=== PATIENT | female | born 1950 | race Caucasian/White ===

== ENCOUNTER 2023-07-06 21:24 | Observation (INO) | payer MEDICAID ==
--- NOTE | 2023-07-06 22:26 | RAD REPORT ---
EXAM DESCRIPTION: [place] Single View07/06/2023 10:08 pm CLINICAL HISTORY: Chest pain COMPARISON: none FINDINGS: The lungs appear clear of acute infiltrate. The heart is normal size IMPRESSION: No acute abnormalities displayed
[2023-07-06] MEDS ORDERED: NITROGLYCERIN 0.4 MG/TAB SL ONE (22:27)
[2023-07-06 23:04] LABS: Absolute Basophils 0.2 K/uL (0-0.5); Absolute Eosinophils 0.4 K/uL (0-0.5); Absolute Lymphocytes (CBC) 2.4 K/uL (0.7-4.9); Absolute Monocytes 0.7 K/uL (0.1-1.3); Absolute Neutrophil 2.5 K/uL (1.8-8.0); Basophils % 2.6 % (0-1.3); Eosinophils % 5.8 % (0-4.4); Hematocrit 41.7 % (36.0-45.0); Hemoglobin 14.1 g/dL (12.0-15.0); Lymphocytes % 39.4 % (15.3-44.8); MCH 29.4 pg (27.0-35.0); MCHC 33.8 g/dL (32.0-36.0); MPV 9.1 fL (7.6-11.3); Monocytes % 11.2 % (3.3-12.3); Nucleated Red Blood Cells % 0.2 % (0-0); Platelets 232 thou/uL (152-406); Red Cell Distribution Width 13.6 % (12.1-15.2)
[2023-07-06 23:12] LABS: PT Prothrombin Time 11.2 SECONDS (9.5-12.5); Protime INR 1.02
[2023-07-06 23:35] LABS: ALT/SGPT 28 U/L (13-56); Albumin/Globulin Ratio 1.1 (1.1-1.8); Alkaline Phosphatase 62 U/L (45-117); Anion Gap 6.9 mEq/L (5.0-15.0); BUN Blood Urea Nitrogen 24 mg/dL (7-18); Bicarbonate 28 mEq/L (21-32); Bilirubin Direct 0.1 mg/dL (0-0.2); Bilirubin Indirect, Calculated 0.6 mg/dL (0.2-0.8); Bilirubin Total 0.7 mg/dL (0.2-1.0); Globulin 3.5 g/dL (2.3-3.5); Glomerular Filtration Rate 48 ml/min (=/>90); Glucose Level 97 mg/dL (74-106); NT PRO-BNP 22 pg/mL (<125); Protein, Total 7.5 g/dL (6.4-8.2); Sodium Level 138 mEq/L (136-145)
[2023-07-07 00:07] LABS: AST/SGOT 12 U/L (15-37); Potassium 3.9 mEq/L (3.5-5.1); Troponin High Sensitivity < 3.0 pg/mL (<58.9)
[2023-07-07] MEDS ORDERED: NA CHLORIDE 0.9% 500 ML ONE (00:15)
[2023-07-07] MEDS ORDERED: KETOROLAC 30 MG/ML INJ ONE (01:27)
[2023-07-07] MEDS ORDERED: ASPIRIN 81 MG CHEWABLE TABLET ONE (01:27)
--- NOTE | 2023-07-07 01:30 | ER ---
Nurse's Notes [facility] Name: Ade Nagel Age: 72 yrs Sex: Female : 1950 Arrival Date: 07/06/2023 Time: 21:24 Bed 18 Private MD: Diagnosis: Chest pain, unspecified;Pain in left shoulder;Abnormal electrocardiogram [ECG] [EKG] Presentation: 07/05 21:41 Chief complaint: Patient states: i HAVE LEFT SHOULDER PAIN THAT IS RADIATIING INTO MY bm8 UPPER CHEST. IT'S SHARP AND HAS BEEN GOING FOR ABOUT TWO HOURS NOW. i TOOK 3 TYLENOL PM 2 HOURS AGO WHEN IT STARTED. Coronavirus screen: Vaccine status: Patient reports receiving the 2nd dose of the covid vaccine. Ebola Screen: Patient negative for fever greater than or equal to 101.5 degrees Fahrenheit, and additional compatible Ebola Virus Disease symptoms Patient denies exposure to infectious person. Patient denies travel to an Ebola-affected area in the 21 days before illness onset. No symptoms or risks identified at this time. Initial Sepsis Screen: Does the patient meet any 2 criteria? No. Patient's initial sepsis screen is negative. Does the patient have a suspected source of infection? No. Patient's initial sepsis screen is negative. Risk Assessment: Do you want to hurt yourself or someone else? Patient reports no desire to harm self or others. Onset of symptoms was July 06, 2023 at 19:00. 21:41 Method Of Arrival: Ambulatory bm8 21:41 Acuity: BECCA 3 bm8 Triage Assessment: 21:43 General: Appears in no apparent distress. uncomfortable, Behavior is calm, cooperative. bm8 Pain: Complains of pain in left SHOULDER Pain radiates to chest Pain currently is 8 out of 10 on a pain scale. Quality of pain is described as sharp, Pain began 2 hours ago. EENT: No deficits noted. No signs and/or symptoms were reported regarding the EENT system. Neuro: No deficits noted. Level of Consciousness is awake, alert, obeys commands, Oriented to person, place, time, situation, Appropriate for age. Cardiovascular: Reports chest pain, Capillary refill < 3 seconds Patient's skin is warm and dry. Respiratory: Airway is patent Trachea midline Respiratory effort is even, unlabored, Respiratory pattern is regular, symmetrical. Musculoskeletal: Range of motion: intact in all extremities, Reports LEFT SHOULDER PAIN THAT RADIATES INTO CHEST. Historical: - Allergies: 21:43 No Known Allergies; bm8 - Home Meds: 21:43 atorvastatin 40 mg oral tablet 1 tab daily [Active]; bm8 - PMHx: 21:43 HLD; bm8 - PSHx: 21:43 X3 C SECTION; Tonsillectomy; bm8 - Immunization history:: Adult Immunizations unknown. - Infectious Disease History:: Denies. - Social history:: Smoking status: Patient denies any tobacco usage or history of. Screenin:32 [facility] ED Fall Risk Assessment (Adult) History of falling in the last 3 months, tm6 including since admission No falls in past 3 months (0 pts) Confusion or Disorientation No (0 pts) Intoxicated or Sedated No (0 pts) Impaired Gait No (0 pts) Mobility Assist Device Used No (0 pt) Altered Elimination No (0 pt) Score/Fall Risk Level 0 - 2 = Low Risk Oriented to surroundings, Maintained a safe environment. Abuse screen: Denies threats or abuse. Denies injuries from another. Nutritional screening: No deficits noted. Tuberculosis screening: No symptoms or risk factors identified. Assessment: 22:31 General: Appears uncomfortable, Behavior is calm, cooperative. Pain: Complains of pain tm6 in chest Pain currently is 8 out of 10 on a pain scale. Quality of pain is described as sharp. Neuro: Level of Consciousness is awake, alert, obeys commands, Oriented to person, place, time, situation. Cardiovascular: Reports chest pain, Patient's skin is warm and dry. Rhythm is regular Chest pain is described as Pain is 8 out of 10 on a pain scale. quality is sharp. Respiratory: Airway is patent Respiratory effort is even, unlabored, Respiratory pattern is regular, symmetrical. GI: Abdomen is flat, non-distended, Reports nausea, vomiting. : No signs and/or symptoms were reported regarding the genitourinary system. EENT: No signs and/or symptoms were reported regarding the EENT system. Derm: No signs and/or symptoms reported regarding the dermatologic system. Musculoskeletal: No signs and/or symptoms reported regarding the musculoskeletal system. 07/06 00:28 Reassessment: Patient and/or family updated on plan of care and expected duration. Pain tm6 level reassessed. Patient is alert, oriented x 3, equal unlabored respirations, skin warm/dry/pink. Patient states symptoms have not improved. 02:24 Reassessment: Patient appears in no apparent distress at this time. tm6 03:00 Reassessment: Patient and/or family updated on plan of care and expected duration. Pain tm6 level reassessed. Patient is alert, oriented x 3, equal unlabored respirations, skin warm/dry/pink. 04:10 Reassessment: report faxed to 2nd floor. tm6 Vital Signs: 07/05 21:41 BP 165 / 72; Pulse 64; Resp 17; Temp 97.6; Pulse Ox 100% ; Weight 98.43 kg; Height 5 bm8 ft. 7 in. ; Pain 8/10; 22:31 BP 125 / 67; Pulse 65; Pulse Ox 99% on R/A; Pain 8/10; tm6 22:59 BP 112 / 59; Pulse 57; Pulse Ox 98% on R/A; Pain 7/10; tm6 23:31 BP 114 / 61; Pulse 58; Pulse Ox 96% on R/A; Pain 7/10; tm6 07/06 00:00 BP 108 / 63; Pulse 59; Pulse Ox 97% on R/A; Pain 6/10; tm6 00:27 Pain 6/10; tm6 02:24 BP 110 / 57; Pulse 62; Resp 21; Pulse Ox 98% on R/A; tm6 03:30 BP 137 / 63; Pulse 58; Resp 15; Pulse Ox 99% on R/A; Pain 0/10; tm6 04:00 BP 114 / 64; Pulse 55; Resp 14; Pulse Ox 97% on R/A; Pain 0/10; tm6 07/05 21:41 Body Mass Index 33.99 (98.43 kg, 170.18 cm) bm8 07/05 21:41 Pain Scale: Adult bm8 22:31 Pain Scale: Adult tm6 22:59 Pain Scale: Adult tm6 23:31 Pain Scale: Adult tm6 07/06 00:00 Pain Scale: Adult tm6 00:27 Pain Scale: Adult tm6 03:30 Pain Scale: Adult tm6 04:00 Pain Scale: Adult tm6 ED Course: 07/05 21:31 Patient arrived in ED. ra3 21:34 Page, Efren, PA is PHCP. cp 21:34 Yvon Padilla MD is Attending Physician. cp 21:43 Triage completed. bm8 21:43 Arm band placed on left wrist. bm8 22:10 XRAY Chest (1 view) In Process Unspecified. EDMS 22:16 Initial lab(s) drawn, by me, sent to lab. EKG done, by ED staff, reviewed by Yvon Padilla MD. Missed attempt(s): 22 gauge Bleeding controlled, band aid applied, catheter tip intact. 22:16 Inserted saline lock: 22 gauge in right wrist, using aseptic technique. Blood collected.bm8 22:26 Prasad Krause, RN is Primary Nurse. tm6 22:32 Patient has correct armband on for positive identification. Placed in gown. Bed in low tm6 position. Call light in reach. Side rails up X2. Provided Education on: use of call prather. Client placed on continuous cardiac and pulse oximetry monitoring. NIBP monitoring applied. surveillance system monitor on. Pulse ox on. NIBP on. Door closed. Noise minimized. Warm blanket given. 0506 00:35 CT Chest For PE Angio In Process Unspecified. EDMS 01:29 Kaleb Lindquist MD is Hospitalizing Provider. cp 04:13 No provider procedures requiring assistance completed. Patient admitted, IV remains in tm6 place. Administered Medications: 07/05 22:31 Drug: Nitroglycerin Sublingual 0.4 mg Sublingual once Route: Sublingual; tm6 07/06 00:47 Drug: NS 0.9% IV 500 ml IV at 125 ml/hr continuous Route: IV; Rate: 125 ml/hr; Site: tm6 right wrist; 01:38 Drug: Ketorolac IVP 15 mg IVP once Route: IVP; Site: right wrist; tm6 01:38 Drug: Aspirin PO Chewable Tablet 324 mg PO once; 81 mg tablets x 4 Route: PO; tm6 Medication: 07/05 22:32 VIS not applicable for this client. tm6 Outcome: 07/06 01:30 Decision to Hospitalize by Provider. cp 04:13 Admitted to Med/surg accompanied by tech, via wheelchair, room 210, with chart, tm6 04:13 Condition: stable 04:13 Instructed on the need for admit, 04:43 Patient left the ED. tm6 Signatures: Dispatcher [employer] Efren Haque PA PA cp Masterson, Tawney RN RN tm6 Fatuma Shaikh ra3 Jin Wooten RN RN bm8 Corrections: (The following items were deleted from the chart) 04:12 04:11 BP 114 / 64; Pulse 55bpm; Resp 14bpm; Pulse Ox 97% RA; Pain 0/10, Adult; tm6 tm6 04:12 03:00 BP 114 / 64; Pulse 55bpm; Resp 14bpm; Pulse Ox 97% RA; Pain 0/10, Adult; tm6 tm6
--- NOTE | 2023-07-07 01:30 | EDPHYS ---
Physician Documentation [facility] Name: Ade Nagel Age: 72 yrs Sex: Female : 1950 Arrival Date: 07/06/2023 Time: 21:24 Bed 18 Private MD: ED Physician Yvon Padilla HPI: 07/05 21:50 This 72 yrs old Female presents to ER via Ambulatory with complaints of Shoulder Pain. cp 21:50 The patient or guardian complains of pain, that is acute. cp 21:50 left shoulder. Context: The problem was sustained at home. Onset: The symptoms/episode cp began/occurred today. Modifying factors: The symptoms are aggravated by movement. Severity of symptoms: in the emergency department the symptoms are unchanged, despite home interventions. Treatment prior to arrival includes: no previous treatment. 21:50 Associated signs and symptoms: Pertinent positives: chest pain, Pertinent negatives: cp abdominal pain. Historical: - Allergies: 21:43 No Known Allergies; bm8 - Home Meds: 21:43 atorvastatin 40 mg oral tablet 1 tab daily [Active]; bm8 - PMHx: 21:43 HLD; bm8 - PSHx: 21:43 X3 C SECTION; Tonsillectomy; bm8 - Immunization history:: Adult Immunizations unknown. - Infectious Disease History:: Denies. - Social history:: Smoking status: Patient denies any tobacco usage or history of. ROS: 21:55 MS/extremity: Positive for pain, of the left shoulder, cp 21:55 Cardiovascular: Positive for chest pain, of the left side of chest, cp 21:55 Constitutional: Negative for body aches, chills, fever, poor PO intake, cp 21:55 Eyes: Negative for injury, pain, redness, and discharge, ENT: Negative for injury, cp pain, and discharge, 21:55 Eyes: Negative for discharge, pain, redness, 21:55 ENT: Negative for drainage from ear(s), ear pain, sore throat, difficulty swallowing, difficulty handling secretions, 21:55 Neck: Negative for pain with movement, pain at rest, stiffness, 21:55 Respiratory: Negative for cough, shortness of breath, wheezing, 21:55 Abdomen/GI: Negative for abdominal pain, vomiting, diarrhea, constipation, 21:55 Neuro: Negative for altered mental status, dizziness, headache, numbness, weakness, 21:55 All other systems are negative, Exam: 21:43 ECG was reviewed by the Attending Physician. cp 22:00 Constitutional: The patient appears in no acute distress, alert, awake, cp non-diaphoretic, non-toxic, well developed, well nourished, uncomfortable, 22:00 Head/Face: Normocephalic, atraumatic. cp 22:00 Eyes: Periorbital structures: appear normal, Conjunctiva: normal, no exudate, no injection, Sclera: no appreciated abnormality, Lids and lashes: appear normal, bilaterally, 22:00 ENT: External ear(s): are unremarkable, Nose: is normal, Mouth: Lips: normal, Oral mucosa: pink and intact, moist, Posterior pharynx: is normal, airway is patent, no erythema, no exudate, 22:00 Neck: ROM/movement: is normal, is supple, without pain, no range of motions limitations, no meningismus, 22:00 Chest/axilla: Inspection: normal, Palpation: is normal, no crepitus, no tenderness, 22:00 Cardiovascular: Rate: normal, Rhythm: regular, Edema: is not appreciated, JVD: is not appreciated, 22:00 Respiratory: the patient does not display signs of respiratory distress, Respirations: normal, no use of accessory muscles, no retractions, labored breathing, is not present, Breath sounds: are clear throughout, no decreased breath sounds, no stridor, no wheezing, 22:00 Abdomen/GI: Inspection: abdomen appears normal, Palpation: abdomen is soft and non-tender, in all quadrants, 22:00 Back: pain, is absent, ROM is normal, 22:00 Musculoskeletal/extremity: Extremities: noted in the left shoulder: pain, tenderness, Pulses: noted to be 2+ in the left radial artery, the left hand and left arm Sensation intact. 22:00 Neuro: Orientation: to person, place \T\ time. Mentation: is normal, Motor: moves all fours, strength is normal, Sensation: no obvious gross deficits, Vital Signs: 21:41 BP 165 / 72; Pulse 64; Resp 17; Temp 97.6; Pulse Ox 100% ; Weight 98.43 kg; Height 5 bm8 ft. 7 in. ; Pain 8/10; 22:31 BP 125 / 67; Pulse 65; Pulse Ox 99% on R/A; Pain 8/10; tm6 22:59 BP 112 / 59; Pulse 57; Pulse Ox 98% on R/A; Pain 7/10; tm6 23:31 BP 114 / 61; Pulse 58; Pulse Ox 96% on R/A; Pain 7/10; tm6 07/06 00:00 BP 108 / 63; Pulse 59; Pulse Ox 97% on R/A; Pain 6/10; tm6 00:27 Pain 6/10; tm6 02:24 BP 110 / 57; Pulse 62; Resp 21; Pulse Ox 98% on R/A; tm6 03:30 BP 137 / 63; Pulse 58; Resp 15; Pulse Ox 99% on R/A; Pain 0/10; tm6 04:00 BP 114 / 64; Pulse 55; Resp 14; Pulse Ox 97% on R/A; Pain 0/10; tm6 07/05 21:41 Body Mass Index 33.99 (98.43 kg, 170.18 cm) 8 07/05 21:41 Pain Scale: Adult bm8 22:31 Pain Scale: Adult tm6 22:59 Pain Scale: Adult tm6 23:31 Pain Scale: Adult tm6 07/06 00:00 Pain Scale: Adult tm6 00:27 Pain Scale: Adult tm6 03:30 Pain Scale: Adult tm6 04:00 Pain Scale: Adult tm6 MDM: 07/05 21:49 Patient medically screened. cp 07/06 01:30 Data reviewed: vital signs, nurses notes, EKG, radiologic studies, plain films, and as cp a result, I will admit patient. 01:30 Differential diagnosis: shoulder pain, acute AR, PE, AAA. Management of patient was cp discussed with the following: Hospitalist: DR Lindquist will admit after discussion. I considered the following discharge prescriptions or medication management in the emergency department Medications were administered in the Emergency Department. See MAR. Independent interpretation of the following test(s) in the Emergency Department EKG: See my EKG interpretation above. 07/05 21:50 Order name: Basic Metabolic Panel; Complete Time: 00:10 cp 07/06 00:10 Interpretation: Normal except: BUN 24; CRE 1.22; GFR 48. cp 07/05 21:50 Order name: CBC with Diff; Complete Time: 23:45 cp 05/05 21:50 Order name: LFT's; Complete Time: 00:10 cp 07/05 21:50 Order name: Magnesium; Complete Time: 00:10 cp 07/05 21:50 Order name: NT PRO-BNP; Complete Time: 00:10 cp 07/05 21:50 Order name: PT-INR; Complete Time: 23:45 cp 0505 21:50 Order name: Troponin HS; Complete Time: 00:10 cp 07/06 00:55 Order name: Troponin HS; Complete Time: 03:49 cp 07/06 04:07 Order name: Urinalysis w/ reflexes EDMS 07/06 04:07 Order name: Troponin High Sensitivity EDMS 07/06 04:07 Order name: Troponin High Sensitivity EDMS 07/06 04:07 Order name: Troponin High Sensitivity EDMS 07/06 04:07 Order name: Troponin High Sensitivity EDMS 07/05 21:50 Order name: XRAY Chest (1 view); Complete Time: 23:45 cp 05 23:45 Order name: CT Chest For PE Angio cp 07/05 21:45 Order name: EKG; Complete Time: 21:46 rn 05 21:45 Order name: EKG - Nurse/Tech; Complete Time: 22:16 rn 07/05 21:50 Order name: Cardiac monitoring; Complete Time: 22:15 cp 07/05 21:50 Order name: IV Saline Lock; Complete Time: 22:15 cp 07/05 21:50 Order name: Labs collected and sent; Complete Time: 22:16 cp 07/05 21:50 Order name: O2 Per Protocol; Complete Time: 22:16 cp 07/05 21:50 Order name: O2 Sat Monitoring; Complete Time: 22:16 cp EC/05 21:43 Rate is 62 beats/min. Rhythm is regular. PA interval is normal. QRS interval is cp prolonged at 136 msec. QT interval is normal. T waves are Inverted in leads aVR, V2, V3. Interpreted by me. Reviewed by me. Administered Medications: 22:31 Drug: Nitroglycerin Sublingual 0.4 mg Sublingual once Route: Sublingual; tm6 07/06 00:47 Drug: NS 0.9% IV 500 ml IV at 125 ml/hr continuous Route: IV; Rate: 125 ml/hr; Site: tm6 right wrist; 01:38 Drug: Ketorolac IVP 15 mg IVP once Route: IVP; Site: right wrist; tm6 01:38 Drug: Aspirin PO Chewable Tablet 324 mg PO once; 81 mg tablets x 4 Route: PO; tm6 Disposition: 04:57 Co-signature as Attending Physician, Yvon Padilla MD I reviewed the patient's care rn provided by the Advanced Practice Provider and agree with the diagnosis and treatment plan. Disposition Summary: 07/07/23 01:30 Hospitalization Ordered Notes: Hospitalization Status: Observation cp Provider: Kaleb Lindquist cp Condition: Stable cp Problem: new cp Symptoms: have improved cp Bed/Room Type: Standard cp Location: Telemetry/MedSurg (observation)(07/07/23 03:55) rv1 Room Assignment: 210(07/07/23 03:55) rv1 Diagnosis - Chest pain, unspecified cp - Pain in left shoulder cp - Abnormal electrocardiogram [ECG] [EKG] cp Forms: - Medication Reconciliation Form cp - SBAR form cp - Leadership Thank You Letter cp Signatures: Dispatcher [employer] EDPR Yvon Padilla MD MD rn Page, Corey, PA PA cp Karlene Duvall RN RN vc1 Mere Beck rv1 Prasad Krause RN RN tm6 Jin Wooten RN RN bm8 Corrections: (The following items were deleted from the chart) 00:55 00:55 Troponin High Sensitivity+C.LAB.BRZ ordered. [facility] EDPR 01:15 07/05 21:20 This 72 yrs old Female presents to ER via Ambulatory with complaints of cp Shoulder Pain. cp / 01:15 07/05 21:20 The patient or guardian complains of pain, that is acute, cp cp / 01:16 07/05 21:45 This 72 yrs old Female presents to ER via Ambulatory with complaints of cp Shoulder Pain. cp / 01:16 05 21:45 The patient or guardian complains of pain, that is acute, cp cp 07/06 03:43 01:30 Telemetry/MedSurg (observation) cp rv1 03:43 01:30 cp rv1 03:55 03:43 BR ER HOLD rv1 vc1 03:55 03:43 ERHOLD- rv1 vc1 03:55 03:55 Telemetry/MedSurg ([facility]) vc1 rv1 03:55 03:55 210 [facility] rv1
[2023-07-07] MEDS ORDERED: ONDANSETRON 4 MG/2 ML VIAL IV PRN (04:02)
--- NOTE | 2023-07-07 04:06 | P.HP ---
Certification for Inpatient Patient admitted to: Observation With expected LOS: <2 Midnights Practitioner: I am a practitioner with admitting privileges, knowledge of patient current condition, hospital course, and medical plan of care. Services: Services provided to patient in accordance with Admission requirements found in Title 42 Section 412.3 of the Code of Federal Regulations Patient History Date of Service: 07/07/23 Reason for admission: Left Shoulder pain History of Present Illness: 72 yrs old Female with no significant past medical history other than hyperlipidemia who was brought to ER with chest discomfort associated with left shoulder pain. Patient started having pain while at rest. No relationship with exercise. Pain is located in retrosternally radiating to the left shoulder. No fever or chills. Not associated with any shortness of breath or diaphoresis. Denies any nausea vomiting or diarrhea.. Denies any family history of CAD. Patient does not have any previous CAD or cardiac history Patient was assessed in the ER and is admitted for further management of chest pain to rule out ACS Allergies No Known Allergies Allergy (Unverified 07/07/23 02:47) Home medications list reviewed: Yes - Past Medical/Surgical History Past Medical History: Reviewed- Non-Contributory -: hyperlipidemia Past Surgical History: Reviewed- Non-Contributory - Family History Family History: Reviewed- Non-Contributory - Social History Smoking Status: Never smoker Review of Systems 10-point ROS is otherwise unremarkable Physical Examination - Vital Signs Temperature: 97.6 F Blood Pressure: 164/72 Pulse: 68 Respirations: 18 Pulse Ox (%): 94 - Physical Exam General: Alert, In no apparent distress, Oriented x3 HEENT: Atraumatic, Normocephalic Neck: Supple, 2+ carotid pulse no bruit Respiratory: Clear to auscultation bilaterally, Normal air movement Cardiovascular: Regular rate/rhythm, Normal S1 S2 Capillary refill: <2 Seconds Gastrointestinal: Soft and benign, W/out succussion splash, W/out hepatosplenomegaly Musculoskeletal: No clubbing, No swelling Integumentary: No rashes Neurological: Normal speech, Normal strength at 5/5 x4 extr, Cranial nerves 3-12 intact, Normal reflexes 2+ Lymphatics: No axilla or inguinal lymphadenopathy - Studies Laboratory Data (last 24 hrs) 07/06/23 07/06/23 07/06/23 22:08 22:08 22:08 WBC 6.10 Hgb 14.1 Hct 41.7 Plt Count 232 PT 11.2 INR 1.02 Sodium 138 Potassium 3.9 BUN 24 H Creatinine 1.22 H Glucose 97 Magnesium 2.0 Total Bilirubin 0.7 AST 12 L ALT 28 Alkaline Phosphatase 62 Assessment and Plan - Problems (Diagnosis) (1) Chest pain Current Visit: Yes Status: Acute Plan: Chest pain to rule out ACS Will trend cardiac enzymes Will monitor telemetry Started on aspirin and statin EKG did not show any acute changes suggestive of ischemia Will get an echocardiogram Cardiology consult CT chest PE protocol was ordered Pain control Left shoulder pain Will start [place] and pain medications Will get an x-ray of the left shoulder Hyperlipidemia Continue statin Acute renal insufficiency IV hydration Monitor renal parameters GI/DVT prophylaxis Advanced directive full code Discharge Plan: Home Plan to discharge in: 48 Hours - Advance Directives Does patient have a Living Will: No Does patient have a Durable POA for Healthcare: No - Code Status/Comfort Care Code Status: Full Code Time Spent Managing Pts Care (In Minutes): 48
[2023-07-07] MEDS: HYDROCODONE/APAP 5/325 MG TAB PO PRN (05:33)
--- NOTE | 2023-07-07 07:41 | RAD REPORT ---
EXAM DESCRIPTION: RAD - Shoulder Left 2 View - 07/07/2023 7:06 am CLINICAL HISTORY: Left shoulder pain FINDINGS: No fracture or dislocation is seen. The mild narrowing of the glenohumeral and AC joints
--- NOTE | 2023-07-07 08:26 | P.PN ---
Subjective Date of Service: 07/07/23 Chief Complaint: Left Shoulder pain Subjective: Improving Left shoulder remains tender, chest pain improved but "I still feel it" <Susan Mauriciolen - Last Filed: 07/07/23 08:23> Date of Service: 07/07/23 <Dior Small - Last Filed: 07/07/23 12:36> Review of Systems 10-point ROS is otherwise unremarkable General: As per HPI Cardiovascular: As per HPI Musculoskeletal: Shoulder Pain, As per HPI <Susan Mauricio Milton - Last Filed: 07/07/23 08:23> Physical Examination - Vital Signs Temperature: 97.3 F Blood Pressure: 122/59 Pulse: 57 Respirations: 15 Pulse Ox (%): 95 - Physical Exam General: Alert, In no apparent distress, Oriented x3, Cooperative HEENT: Atraumatic, Normocephalic Neck: 2+ carotid pulse no bruit Respiratory: Clear to auscultation bilaterally, Normal air movement Cardiovascular: Normal pulses, Regular rate/rhythm Capillary refill: <2 Seconds Gastrointestinal: Normal bowel sounds, Soft and benign Musculoskeletal: No clubbing, No swelling, Other (tenderness to left anterior shoulder) Integumentary: No rashes Neurological: Normal speech, Normal tone Lymphatics: No axilla or inguinal lymphadenopathy External genitalia: Deferred Rectal: Deferred - Studies Laboratory Data (last 24 hrs) 07/06/23 07/06/23 07/06/23 22:08 22:08 22:08 WBC 6.10 Hgb 14.1 Hct 41.7 Plt Count 232 PT 11.2 INR 1.02 Sodium 138 Potassium 3.9 BUN 24 H Creatinine 1.22 H Glucose 97 Magnesium 2.0 Total Bilirubin 0.7 AST 12 L ALT 28 Alkaline Phosphatase 62 <Annmarie Mauriciodaniela Rose - Last Filed: 07/07/23 08:23> - Studies Laboratory Data (last 24 hrs) 07/06/23 07/06/23 07/06/23 22:08 22:08 22:08 WBC 6.10 Hgb 14.1 Hct 41.7 Plt Count 232 PT 11.2 INR 1.02 Sodium 138 Potassium 3.9 BUN 24 H Creatinine 1.22 H Glucose 97 Magnesium 2.0 Total Bilirubin 0.7 AST 12 L ALT 28 Alkaline Phosphatase 62 <Dior Small - Last Filed: 07/07/23 12:36> Assessment And Plan - Plan - Problems (Diagnosis) (1) Chest pain Current Visit: Yes Status: Acute Plan: Chest pain to rule out ACS Will monitor telemetry Started on aspirin and statin EKG did not show any acute changes suggestive of ischemia Will get an echocardiogram Cardiology consult CT chest PE protocol was ordered Pain control 07/07/23 Will trend cardiac enzymes (negative x 3) Left shoulder pain Will start [place] and pain medications Will get an x-ray of the left shoulder Hyperlipidemia Continue statin Acute renal insufficiency IV hydration Monitor renal parameters GI/DVT prophylaxis Advanced directive full code Discharge Plan: Home Plan to discharge in: 24 Hours <Susan Mauricio - Last Filed: 07/07/23 08:23> - Plan Pt ruben nd examined. I agree with the note by the DOUBLE HEAD MACHINE OPERATOR. Cardiology will do cardac cath today. Will continue prn pain meds for left shoulder pain. <Dior Small - Last Filed: 07/07/23 12:36>
[2023-07-07] MEDS: ASPIRIN EC 81 MG TAB PO SCH (08:59)
[2023-07-07] MEDS: POTASSIUM CL SA 10 MEQ TAB PO ONE (08:59)
[2023-07-07] MEDS: ENOXAPARIN 40 MG/0.4 ML SQ SCH (09:00)
--- NOTE | 2023-07-07 12:19 | P.CNS ---
Date of Consult: 07/07/23 Chief Complaint: Left Shoulder pain History of Present Illness: Patient with PMH of HLD, Borderline DM, presented with new onset left shoulder/chest pain that started yesterday, pressure in nature, associated with nausea and vomited once, denies any other symptoms. Allergies No Known Allergies Allergy (Unverified 07/07/23 02:47) Home Medications: Atorvastatin Calcium [Lipitor] 1 tab PO BEDTIME 07/07/23 - Past Medical/Surgical History Diabetic: No -: hyperlipidemia -: pre diabetic -: sleep apnea with CPAP dependancy -: 3 c sections -: Tonsillectomy -: R Breast biopsy - Family History Father Medical History: Lung disease, Cancer Notes: Lung cancer Mother Medical History: Cancer Notes: Breast cancer - Social History Alcohol use: Yes CD- Drugs: No Caffeine use: Yes Place of Residence: Home Review of Systems 10-point ROS is otherwise unremarkable Physical Examination Temp Pulse Resp BP Pulse Ox 97.3 F 57 15 122/59 L 95 07/07/23 08:26 07/07/23 08:26 07/07/23 08:26 07/07/23 08:26 07/07/23 08:26 General: Alert, Oriented x3 HEENT: Atraumatic Neck: Supple Respiratory: Clear to auscultation bilaterally Cardiovascular: No edema, Normal S1 S2 Gastrointestinal: Normal bowel sounds Laboratory Data (last 24 hrs) 07/06/23 07/06/23 07/06/23 22:08 22:08 22:08 WBC 6.10 Hgb 14.1 Hct 41.7 Plt Count 232 PT 11.2 INR 1.02 Sodium 138 Potassium 3.9 BUN 24 H Creatinine 1.22 H Glucose 97 Magnesium 2.0 Total Bilirubin 0.7 AST 12 L ALT 28 Alkaline Phosphatase 62 - Problems (1) HLD (hyperlipidemia) Current Visit: Yes Status: Acute Plan: Continue Lipitor 40 mg daily lipid panel in 3 months. (2) Chest pain Current Visit: Yes Status: Acute Plan: patient with multiple risk factors, including borderline DM, HLD and obesity, will schedule patient for coronary angiogram today. continue ASA 81 mg daily.
--- NOTE | 2023-07-07 12:22 | RAD REPORT ---
EXAM DESCRIPTION: CT - Chest For Pe Angio - 07/07/2023 6:37 am CLINICAL HISTORY: CHEST PAIN COMPARISON: None. TECHNIQUE: CT CHEST ANGIOGRAPHY WITH IV CONTRAST on 07/06/2023 11:45 PM CDT. MIPS reconstructions were generated. This exam was performed according to our departmental dose-optimization program, which includes autom ated exposure control, adjustment of the mA and/or kV according to patient size and/or use of iterati ve reconstruction technique. MIP images were generated. FINDINGS: Thoracic aorta is normal in course and caliber without aneurysm or dissection. Pulmonary a rteries are adequately opacified without acute or chronic filling defects. The heart is normal in size. There is no pericardial effusion. Intrathoracic lymph nodes are not enla rged. There is no pleural effusion, pleural thickening or pneumothorax. Central airways are patent. Lungs a re clear with no consolidation, mass or interstitial lung disease. There are no acute abnormalities within the limited images of the upper abdomen. There are no acute osseous findings. No suspicious bony lesions. IMPRESSION: No aortic dissection or aneurysm. No pulmonary embolus. No pneumonia. Electronically signed by: Guido Melara MD 07/07/2023 01:42 AM CDT Due to temporary technical issues with the PACS/Fluency reporting system, reports are being signed by the in house radiologist without review as a courtesy to ensure prompt reporting. The interpreting r adiologist is fully responsible for the content of the report.
[2023-07-07] MEDS: NA CHLORIDE 0.9% 500 ML ONE (13:28)
[2023-07-07] MEDS ORDERED: FENTANYL CITR 100 MCG/2 ML ONE (13:57)
[2023-07-07] MEDS ORDERED: MIDAZOLAM HCL 2 MG/2 ML INJ ONE (13:57)
[2023-07-07] MEDS ORDERED: HEPA 1000U/500MLS 2,000 UNIT/1,000 ML BAG IV ONE (13:57)
[2023-07-07] MEDS ORDERED: VERAPAMIL HCL 10 MG/4 ML VIAL IV ONE (13:57)
[2023-07-07] MEDS ORDERED: ATROPINE SULF 1 MG/10 ML SYR IV ONE (13:57)
[2023-07-07] MEDS ORDERED: LIDOCAINE 1% 20 ML MDV ONE (13:57)
[2023-07-07] MEDS ORDERED: HEPARIN 10,000 UNIT/10 ML VIAL IV ONE (13:58)
[2023-07-07] MEDS ORDERED: CLOPIDOGREL 75 MG TABLET ONE (13:58)
[2023-07-07] MEDS ORDERED: HEPARIN 5000 UNIT/ML 1 ML VIAL ONE (13:58)
[2023-07-07] MEDS ORDERED: TICAGRELOR 90 MG TABLET PO ONE (13:58)
[2023-07-07] MEDS ORDERED: ASPIRIN 325 MG TAB ONE (13:58)
--- NOTE | 2023-07-07 14:38 | EKG ---
Test Date: 2023-07-06 Test Time: 21:38:24 Courtroom Deputy: SALINA MEASUREMENT RESULTS: Intervals: Rate: 62 IN: 188 QRSD: 136 QT: 460 QTc: 466 [place]: P: 41 IN: 188 QRS: 20 T: 30 INTERPRETIVE STATEMENTS: Normal sinus rhythm Right bundle branch block Abnormal ECG No previous ECG available for comparison Electronically Signed On 07-07-23 14:37:19 CDT by Fidencio Clemente
--- NOTE | 2023-07-07 14:46 | ECHO ---
HEIGHT: 5 ft 7 in WEIGHT: 217 lb 0 oz DATE OF STUDY: 07/07/[address]: Torito Lindquist DO 2-DIMENSIONAL: YES M.MODE: YES DOPPLER: YES COLOR FLOW: YES TDS: PORTABLE: YES DEFINITY: BUBBLE STUDY: DIAGNOSIS: CHEST PAIN CARDIAC HISTORY: CATHERIZATION: NO SURGERY: NO PROSTHETIC VALVE: NO PACEMAKER: NO MEASUREMENTS (cm) DIASTOLIC (NORMALS) SYSTOLIC (NORMALS) IVSd 1.0 (0.6-1.2) LA Diam 3.3 (1.9-4.0) LVEF 57% LVIDd 4.0 (3.5-5.7) LVIDs 2.9 (2.0-3.5) %FS 29% LVPWd 1.1 (0.6-1.2) Ao Diam 3.0 (2.0-3.7) 2 DIMENSIONAL ASSESSMENT: RIGHT ATRIUM: NORMAL LEFT ATRIUM: NORMAL RIGHT VENTRICLE: NORMAL LEFT VENTRICLE: NORMAL TRICUSPID VALVE: NORMAL MITRAL VALVE: MILD MITRAL REGURGITATION PULMONIC VALVE: NORMAL AORTIC VALVE: NORMAL PERICARDIAL EFFUSION: NONE AORTIC ROOT: NORMAL LEFT VENTRICULAR WALL MOTION: NORMAL DOPPLER/COLOR FLOW: MILD MITRAL REGURGITATION COMMENTS: 1. NORMAL LEFT VENTRICULAR EJECTION FRACTION 60-65% 2. NORMAL WALL MOTION 3. GRADE I DIASTOLIC DYSFUNCTION 4. MILD MITRAL REGURGITATION TECHNOLOGIST: MAIDA VALENTIN
[2023-07-07] MEDS: ATORVASTATIN 40 MG TAB PO SCH (21:38)
[2023-07-07] MEDS: ACETAMINOPHEN 325 MG TABLET PO PRN (21:38)
--- NOTE | 2023-07-08 04:06 | OP ---
Date of Procedure: 07/07/2023 Surgeon: ROME NÚÑEZ Procedure Performed: 1.Selective coronary angiogram. 2.Left heart catheterization. Indication: Unstable angina. Access: Carotid artery 6-Citizen [place] closed with TR band. Complications: None. Bleeding: Less than 50 mL. Description Of Procedure: After risks, benefits, and alternatives were explained, the patient agreed to procedure and signed informed consent. The patient was brought into the cardiac catheterization laboratory, prepped and draped in usual sterile fashion. Then, I accessed right radial artery using pediatric micropuncture kit, placed a 6-Citizen [place] Slender sheath, took a 5-Citizen [place] Elmer 4 catheter over J-wire into the aortic root, engaged left main, took standard views and then the RCA, took standard v iews and the catheter was pushed over the wire into the LV, measured the LVEDP and pullback did not r ecord any gradient. Then removed the catheter and the sheath, and placed TR band with good hemostasi s. Findings: 1.Left Main: Large and normal. 2.LAD: Proximal segment is large and normal and then diagonal branch bifurcates and it forms a dual LAD system and it is tortuous, both are tortuous, but they both are normal. 3.Left Circumflex: Moderate-sized normal. 4.RCA: Large and dominant and tortuous and normal. No disease. 5.LVEDP: Elevated at 20 mmHg. Conclusion: 1.Normal coronary arteries, but severely tortuous. 2.Elevated LVEDP. Recommendation: Medical management including diuretics. SR/MODL Voice ID: [id number] Report ID: [id number]
[2023-07-08 06:08] LABS: Absolute Basophils 0.1 K/uL (0-0.5); Absolute Eosinophils 0.3 K/uL (0-0.5); Absolute Lymphocytes (CBC) 1.7 K/uL (0.7-4.9); Absolute Monocytes 0.6 K/uL (0.1-1.3); Absolute Neutrophil 2.7 K/uL (1.8-8.0); Basophils % 1.4 % (0-1.3); Eosinophils % 6.2 % (0-4.4); Hematocrit 39.1 % (36.0-45.0); Hemoglobin 13.4 g/dL (12.0-15.0); Lymphocytes % 31.5 % (15.3-44.8); MCH 29.8 pg (27.0-35.0); MCHC 34.3 g/dL (32.0-36.0); MCV 86.9 fL (80-100); MPV 8.4 fL (7.6-11.3); Monocytes % 10.9 % (3.3-12.3); Nucleated Red Blood Cells % 0.1 % (0-0); Platelets 227 thou/uL (152-406); RBC Red Blood Cell Count 4.51 M/uL (3.86-4.86); Red Cell Distribution Width 13.9 % (12.1-15.2)
[2023-07-08 06:27] LABS: Anion Gap 8.2 mEq/L (5.0-15.0); Potassium 4.2 mEq/L (3.5-5.1)
[2023-07-08 06:35] VITALS: BMI 34.0
--- NOTE | 2023-07-08 08:04 | P.DS ---
Admission Date: 07/07/23 Discharge Date: 07/08/23 Reason for Admission: Left Shoulder pain Consultations: Dr. Clemente Procedures: Left heart cath Brief History of Present Illness: 72 yrs old Female with no significant past medical history other than hyperlipidemia who was brought to ER with chest discomfort associated with left shoulder pain. Patient started having pain while at rest. No relationship with exercise. Pain is located in retrosternally radiating to the left shoulder. No fever or chills. Not associated with any shortness of breath or diaphoresis. Denies any nausea vomiting or diarrhea.. Denies any family history of CAD. Patient does not have any previous CAD or cardiac history Hospital Course: Ms. Nagel did well over the course of her hospitalization. Secondary to atypical symptoms and risk factors, cardiac cath was performed and found to be without necessary PCI. LVEF pressures were a little elevated and Dr. Clemente recommends medical management with diuretics. She will continue atorvastatin, aspirin, and add HCTZ p.o. daily. <Susan Mauricio - Last Filed: 07/08/23 08:20> Admission Date: 07/07/23 Discharge Date: 07/08/23 Hospital Course: Pt seen and examined. I agree with the note by the BRINE TANK OPERATOR. Pt had cardiac cath which did not show any significant CAD. Will continue medical therapy. Ok to discharge pt. <Dior Small - Last Filed: 07/08/23 11:49> Disposition: ROUTINE DISCHARGE Discharge Condition: GOOD Vital Signs/Physical Exam: Temp Pulse Resp BP Pulse Ox 97.2 F 69 16 122/62 96 07/08/23 04:00 07/08/23 04:00 07/08/23 04:00 07/08/23 04:00 07/08/23 04:00 General: Alert, In no apparent distress, Oriented x3 HEENT: Atraumatic, Normocephalic Neck: JVD not distended Respiratory: Clear to auscultation bilaterally, Normal air movement Cardiovascular: Normal pulses, Regular rate/rhythm Capillary refill: <2 Seconds Gastrointestinal: Soft and benign Musculoskeletal: No clubbing, No swelling Integumentary: No rashes Neurological: Normal gait, Normal speech, Normal tone Lymphatics: No axilla or inguinal lymphadenopathy External genitalia: Deferred Rectal: Deferred Laboratory Data at Discharge: WBC 5.30 thou/uL (4.3-10.9) 07/08/23 05:28 Hgb 13.4 g/dL (12.0-15.0) 07/08/23 05:28 Hct 39.1 % (36.0-45.0) 07/08/23 05:28 Plt Count 227 thou/uL (152-406) 07/08/23 05:28 PT 11.2 SECONDS (9.5-12.5) 07/06/23 22:08 INR 1.02 07/06/23 22:08 Sodium 141 mEq/L (136-145) 07/08/23 05:28 Potassium 4.2 mEq/L (3.5-5.1) 07/08/23 05:28 BUN 20 mg/dL (7-18) H 07/08/23 05:28 Creatinine 0.79 mg/dL (0.55-1.02) 07/08/23 05:28 Glucose 97 mg/dL (74-106) 07/08/23 05:28 Magnesium 2.0 mg/dL (1.6-2.4) 07/06/23 22:08 Total Bilirubin 0.7 mg/dL (0.2-1.0) 07/06/23 22:08 AST 12 U/L (15-37) L 07/06/23 22:08 ALT 28 U/L (13-56) 07/06/23 22:08 Alkaline Phosphatase 62 U/L (45-117) 07/06/23 22:08 <Mauricio,Susan Milton - Last Filed: 07/08/23 08:20> Vital Signs/Physical Exam: Temp Pulse Resp BP Pulse Ox 97.4 F 64 16 124/67 95 07/08/23 08:00 07/08/23 08:00 07/08/23 08:00 07/08/23 08:00 07/08/23 08:00 Laboratory Data at Discharge: WBC 5.30 thou/uL (4.3-10.9) 07/08/23 05:28 Hgb 13.4 g/dL (12.0-15.0) 07/08/23 05:28 Hct 39.1 % (36.0-45.0) 07/08/23 05:28 Plt Count 227 thou/uL (152-406) 07/08/23 05:28 PT 11.2 SECONDS (9.5-12.5) 07/06/23 22:08 INR 1.02 07/06/23 22:08 Sodium 141 mEq/L (136-145) 07/08/23 05:28 Potassium 4.2 mEq/L (3.5-5.1) 07/08/23 05:28 BUN 20 mg/dL (7-18) H 07/08/23 05:28 Creatinine 0.79 mg/dL (0.55-1.02) 07/08/23 05:28 Glucose 97 mg/dL (74-106) 07/08/23 05:28 Magnesium 2.0 mg/dL (1.6-2.4) 07/06/23 22:08 Total Bilirubin 0.7 mg/dL (0.2-1.0) 07/06/23 22:08 AST 12 U/L (15-37) L 07/06/23 22:08 ALT 28 U/L (13-56) 07/06/23 22:08 Alkaline Phosphatase 62 U/L (45-117) 07/06/23 22:08 <Dior Small - Last Filed: 07/08/23 11:49> Diet: AHA Activity: Ad kalpesh <Mauricio,Susan Milton - Last Filed: 07/08/23 08:20> <Dior Small - Last Filed: 07/08/23 11:49> Home Medications: Atorvastatin Calcium [Lipitor] 1 tab PO BEDTIME 07/07/23 Aspirin [Aspirin EC] 81 mg PO DAILY #90 tab 07/08/23 hydroCHLOROthiazide [Hydrochlorothiazide*] 12.5 mg PO DAILY #90 cap 07/08/23 New Medications: Aspirin [Aspirin EC] 81 mg PO DAILY #90 tab hydroCHLOROthiazide [Hydrochlorothiazide*] 12.5 mg PO DAILY #90 cap Physician Discharge Instructions: Ms. Nagel did well over the course of her hospitalization. Secondary to atypical symptoms and risk factors, cardiac cath was performed and found to be without necessary PCI. LVEF pressures were a little elevated and Dr. Clemente recommends medical management with diuretics. She will continue atorvastatin, aspirin, and add HCTZ p.o. daily. Okay to DC IV and DC home Follow-up with primary care provider in 1 to 2 weeks Follow-up with cardiology in 1 to 2-week Please call the inpatient unit for any questions or concerns regarding hospital stay Return to the ER for worsening symptoms Followup: Shanon Gonzalez FNP [Primary Care Provider] - Fidencio Clemente MD [ACTIVE - CAN ADMIT] -
[2023-07-08 08:25] VITALS: BP 124/67; TEMP 97.4
[2023-07-08 09:59] VITALS: O2SAT 97
== END 2023-07-08 10:12 | disposition home or self-care (01) ==
LOC: ER 21:24 → 2ND 07-07 04:02
PROVIDERS: ADMIT Family Medicine; ATTEND Hospitalist
PROC: 4A023N7 Measurement of Cardiac Sampling and Pressure, Left Heart, Percutaneous Approach (ICD-10-PCS; principal; 2023-07-07)
PROC: B2111ZZ Fluoroscopy of Multiple Coronary Arteries using Low Osmolar Contrast (ICD-10-PCS; 2023-07-07)
DX: R07.9 Chest pain, unspecified (principal); I77.1 Stricture of artery; M25.512 Pain in left shoulder; N28.9 Disorder of kidney and ureter, unspecified; I10 Essential (primary) hypertension; E78.5 Hyperlipidemia, unspecified; I45.10 Unspecified right bundle-branch block; R73.03 Prediabetes; G47.30 Sleep apnea, unspecified; E66.9 Obesity, unspecified; Z68.34 Body mass index [BMI] 34.0-34.9, adult; Z99.81 Dependence on supplemental oxygen; Z79.899 Other long term (current) drug therapy; Z80.1 Family history of malignant neoplasm of trachea, bronchus and lung; Z80.3 Family history of malignant neoplasm of breast
CPT/HCPCS: 93005; 93306; 85025 ×2; 80048 ×2; 36415 ×2; 83735; 85610; 80076; 84484 ×5; 83880; 71275; 71045; 73030; 93458; 76937; 94760 ×3; 96374; 99285; Q9967; C1893; Q9966; J1644; J2001; J1650 ×2; J2250; J3010; G0378 ×4; J7040 ×2; 99152; 99153; J0461

== ENCOUNTER 2023-10-06 06:53 | Emergency (ER) | payer MEDICAID ==
[2023-10-06] MEDS ORDERED: MAGNESIUM CITRATE 300 ML BOT ONE (07:21)
[2023-10-06] MEDS ORDERED: FLEET ENEMA ADULT PR ONE (07:21)
--- NOTE | 2023-10-06 08:10 | RAD REPORT ---
EXAM DESCRIPTION: RAD - Abdomen Single View - 10/06/2023 7:45 am CLINICAL HISTORY: CONSTIPATION COMPARISON: No comparisons TECHNIQUE: Single AP view of the abdomen. FINDINGS: Nonobstructive bowel gas pattern. No air-fluid levels, free air, or pneumatosis. Mild stool burden along the ascending colon and moderate stool retention in the rectal bulb. No suspicious calcifications. No significant bony abnormality. IMPRESSION: Up to moderate stool retention most notably in the rectal bulb. No acute findings.
--- NOTE | 2023-10-06 09:45 | ER ---
Nurse's Notes [facility] Name: Ade Nagel Age: 72 yrs Sex: Female : 1950 Arrival Date: 10/06/2023 Time: 06:53 Bed 2 Private MD: Diagnosis: Constipation, unspecified Presentation: 10/05 06:55 Chief complaint: Patient states: I've been constipated and haven't been able to have a jw7 bowl movement for three days. "My rear-end hurts really bad". 06:55 Coronavirus screen: At this time, the client does not indicate any symptoms associated jw7 with coronavirus-19. Ebola Screen: No symptoms or risks identified at this time. Initial Sepsis Screen: Does the patient meet any 2 criteria? No. Patient's initial sepsis screen is negative. Does the patient have a suspected source of infection? No. Patient's initial sepsis screen is negative. Risk Assessment: Do you want to hurt yourself or someone else? Patient reports no desire to harm self or others. Onset of symptoms was October 03, 2023. Care prior to arrival: Medication(s) given: Tylenol, 500mg zofran 4 mg, IV initiated. 18 GA, in the left antecubital area, Glucose check: 161. 06:55 Method Of Arrival: EMS: [facility] 7 06:55 Acuity: BECCA 3 jw7 Triage Assessment: 06:55 General: Appears in no apparent distress. uncomfortable, Behavior is calm, cooperative, jw7 appropriate for age. Pain: Complains of pain in gluteal cleft Pain does not radiate. Pain currently is 10 out of 10 on a pain scale. Quality of pain is described as pressure, throbbing, stinging, Pain began 2-3 days ago. Is intermittent. EENT: No deficits noted. No signs and/or symptoms were reported regarding the EENT system. Neuro: Level of Consciousness is awake, alert, obeys commands, Oriented to person, place, time, situation, Appropriate for age. Cardiovascular: Heart tones S1 S2 present Capillary refill < 3 seconds Clubbing of nail beds is absent JVD is absent Patient's skin is warm and dry. Respiratory: Airway is patent Trachea midline Respiratory effort is even, unlabored, Respiratory pattern is regular, symmetrical. GI: Abdomen is round non-distended. GI: Bowel sounds present X 4 quads. Abd is soft Abdomen is tender to palpation Reports constipation. : No deficits noted. No signs and/or symptoms were reported regarding the genitourinary system. Derm: Skin is intact, is healthy with good turgor, Skin is dry, Skin is normal, Skin temperature is warm. Musculoskeletal: Circulation, motion, and sensation intact. Range of motion: intact in all extremities. Historical: - Allergies: 07: No Known Allergies; jw7 - Home Meds: 07:08 Hydrochlorothiazide Oral [Active]; aspirin 81 mg Oral capsule [Active]; jw7 - PMHx: 07:08 diabetes mellitus; HEART FAILURE; HLD; Hypertensive disorder; Congestive heart failure; jw7 Sleep apnea; - PSHx: : section; Tonsillectomy; jw7 - Immunization history:: Adult Immunizations up to date, Client reports receiving the 2nd dose of the Covid vaccine, Pneumococcal vaccine is up to date, Flu vaccine is not up to date. - Infectious Disease History:: Denies. - Social history:: Smoking status: Patient denies any tobacco usage or history of. Screenin:[address] [facility] ED Fall Risk Assessment (Adult) History of falling in the last 3 months, jw7 including since admission No falls in past 3 months (0 pts) Confusion or Disorientation No (0 pts) Intoxicated or Sedated No (0 pts) Impaired Gait No (0 pts) Mobility Assist Device Used No (0 pt) Altered Elimination No (0 pt) Score/Fall Risk Level 0 - 2 = Low Risk Oriented to surroundings, Maintained a safe environment, Educated pt \\T\\ family on fall prevention, incl call for assistance when getting out of bed. Abuse screen: Denies threats or abuse. Denies injuries from another. Nutritional screening: No deficits noted. Tuberculosis screening: No symptoms or risk factors identified. Assessment: 07:05 General: Appears comfortable, Behavior is calm, cooperative. Pain: Complains of pain in aa5 rectum Pain currently is 10 out of 10 on a pain scale. Quality of pain is described as tender, Is continuous. Neuro: Level of Consciousness is awake, alert, obeys commands, Oriented to person, place, time, situation. Cardiovascular: Patient's skin is warm and dry. Respiratory: Airway is patent Respiratory effort is even, unlabored, Respiratory pattern is regular, symmetrical. GI: Abdomen is round non-distended, Last BM was October 03, 2023. Bowel sounds present X 4 quads. Abd is soft and non tender X 4 quads. Reports constipation. : No signs and/or symptoms were reported regarding the genitourinary system. EENT: No signs and/or symptoms were reported regarding the EENT system. Derm: Skin is pink, warm \\T\\ dry. Musculoskeletal: Range of motion: intact in all extremities. 07:37 Reassessment: Pt finished magnesium citrate, currently sitting up in bed, x-ray was aa5 completed by radiology. . 08:15 Reassessment: Patient is alert, oriented x 3, equal unlabored respirations, skin aa5 warm/dry/pink. Pt had unsuccessful bowel movement attempt . 08:31 Reassessment: Pt currently attempting to have bowel movement. . aa5 08:31 Reassessment: Patient is alert, oriented x 3, equal unlabored respirations, skin aa5 warm/dry/pink. 09:20 Reassessment: Patient is alert, oriented x 3, equal unlabored respirations, skin aa5 warm/dry/pink. Pt had very small hard bowel movement, MD was notified. Attempted digital disimpaction, broke off stool but unable to retrieve any, pt to attempt to have bowel movement. Pt states "my butt hurts so bad I can't push anymore" . 09:40 Reassessment: Patient is alert, oriented x 3, equal unlabored respirations, skin aa5 warm/dry/pink. Patient states feeling better. Patient states symptoms have improved. Pt had large bowel movement, MD was notified. . General: Appears comfortable, Behavior is calm, cooperative. 10:20 Reassessment: Patient is alert, oriented x 3, equal unlabored respirations, skin aa5 warm/dry/pink. Vital Signs: 06:55 BP 148 / 75; Pulse 73; Resp 20 S; Temp 98.5(O); Pulse Ox 96% on R/A; Weight 98.43 kg; jw7 Height 5 ft. 7 in. ; Pain 10/10; 07:51 BP 145 / 75; Pulse 73; Resp 16 S; Pulse Ox 99% on R/A; aa5 09:41 BP 125 / 65; Pulse 78; Resp 18 S; Temp 97.8(TE); Pulse Ox 98% on R/A; aa5 10:18 BP 115 / 86; Pulse 75; Resp 16 S; Pulse Ox 99% on R/A; Pain 0/10; aa5 06:55 Body Mass Index 33.99 (98.43 kg, 170.18 cm) jw7 06:55 Pain Scale: Adult jw7 10:18 Pain Scale: Adult aa5 ED Course: 06:55 Patient arrived in ED. eb 06:55 Arm band placed on. jw7 07:01 Hector Hardin MD is Attending Physician. ec2 07:08 Triage completed. jw7 07:11 Nevin Elizondo, RN is Primary Nurse. aa5 07:11 Patient has correct armband on for positive identification. Bed in low position. Call [facility] light in reach. Side rails up X2. 07:12 Maintain EMS IV. Dressing intact. Good blood return noted. Site clean \\T\\ dry. Gauge \\T\\ jw 7 site: 18G LAC. 07:47 Abdomen 1 View XRAY In Process Unspecified. EDMS 10:19 IV discontinued, intact, bleeding controlled, No redness/swelling at site. Pressure aa5 dressing applied. 10:19 No provider procedures requiring assistance completed. aa5 Administered Medications: 07:25 Drug: Magnesium Citrate PO Liquid 300 ml PO once Route: PO; aa5 10:18 Follow up: Response: No adverse reaction; Marked relief of symptoms aa5 08:18 Drug: Fleet Enema LA 133 ml LA once; may repeat once Route: LA; aa5 10:18 Follow up: Response: No adverse reaction; Marked relief of symptoms aa5 Medication: 07:50 VIS not applicable for this client. aa5 Outcome: 09:43 Discharge ordered by . ec2 10:19 Discharged to home ambulatory, with family, aa5 10:19 Condition: improved 10:19 Discharge instructions given to patient, Instructed on discharge instructions, follow up and referral plans. medication usage, Demonstrated understanding of instructions, follow-up care, 10:20 Patient left the ED. aa5 Signatures: Dispatcher [employer] EDMS Nevin Elizondo, HOLLY RN aa5 Coral Anderson Jodi, RN RN jw7 Hector Hardin MD MD 2
--- NOTE | 2023-10-06 09:45 | EDPHYS ---
Physician Documentation [facility] Name: Ade Nagel Age: 72 yrs Sex: Female : 1950 Arrival Date: 10/06/2023 Time: 06:53 Bed 2 Private MD: ED Physician Hector Hardin HPI: 10/05 07:05 This 72 yrs old Female presents to ER via Unassigned with complaints of ec2 constipation. 07:05 Patient arrives today for evaluation of constipation. Last bowel movement was ec2 approximately 2 to 3 days ago. States that she is having significant issues with straining and fear that she is unable to get stool out. Patient reports generalized abdominal cramping. States that she took some type of stool softener last night. No nausea, no vomiting. Reports adequate p.o. intake.. Historical: - Allergies: 07:08 No Known Allergies; jw7 - Home Meds: 07:08 Hydrochlorothiazide Oral [Active]; aspirin 81 mg Oral capsule [Active]; jw7 - PMHx: 07:08 diabetes mellitus; HEART FAILURE; HLD; Hypertensive disorder; Congestive heart failure; jw7 Sleep apnea; - PSHx: 07:08 section; Tonsillectomy; jw7 - Immunization history:: Adult Immunizations up to date, Client reports receiving the 2nd dose of the Covid vaccine, Pneumococcal vaccine is up to date, Flu vaccine is not up to date. - Infectious Disease History:: Denies. - Social history:: Smoking status: Patient denies any tobacco usage or history of. ROS: 07:05 Constitutional: as per hpi ec2 Exam: 07:05 Constitutional: GEN: NAD Head: atraumatic Eyes: EOMI Ears: External ears are ec2 normal. CV: regular rate LUNGS: no respiratory distress ABD: non-distended SKIN: no evidence of rashes MSK: no evidence of trauma NEURO: moves all extremities equally Vital Signs: 06:55 BP 148 / 75; Pulse 73; Resp 20 S; Temp 98.5(O); Pulse Ox 96% on R/A; Weight 98.43 kg; jw7 Height 5 ft. 7 in. ; Pain 10/10; 07:51 BP 145 / 75; Pulse 73; Resp 16 S; Pulse Ox 99% on R/A; aa5 09:41 BP 125 / 65; Pulse 78; Resp 18 S; Temp 97.8(TE); Pulse Ox 98% on R/A; aa5 10:18 BP 115 / 86; Pulse 75; Resp 16 S; Pulse Ox 99% on R/A; Pain 0/10; aa5 06:55 Body Mass Index 33.99 (98.43 kg, 170.18 cm) jw7 06:55 Pain Scale: Adult jw7 10:18 Pain Scale: Adult aa5 MDM: 07:01 Patient medically screened. ec2 07:05 Data reviewed: vital signs. ED course: Patient arrives today for constipation. ec2 Examination remarkable for well-appearing nontoxic vision otherwise in no acute distress with a reassuring examination. Will attempt Fleet enema as well as mag citrate. Suspect constipation, additionally consider small bowel obstruction, ileus. Patient otherwise well-appearing, lower suspicion for these and accordingly we will forego additional testing with CT of the abdomen pelvis.. 08:11 ED course: Abdominal x-ray independently reviewed and interpreted by me, shows ec2 constipation.. 09:43 ED course: Patient with significant bowel movements on reassessment. Will discharge ec2 home. Return precautions given.. 10/05 07:05 Order name: Abdomen 1 View XRAY; Complete Time: 08:11 ec2 Administered Medications: 07:25 Drug: Magnesium Citrate PO Liquid 300 ml PO once Route: PO; aa5 10:18 Follow up: Response: No adverse reaction; Marked relief of symptoms aa5 08:18 Drug: Fleet Enema MD 133 ml MD once; may repeat once Route: MD; aa5 10:18 Follow up: Response: No adverse reaction; Marked relief of symptoms aa5 Disposition Summary: 10/06/23 09:43 Discharge Ordered Notes: Location: Home ec2 Condition: Stable ec2 Diagnosis - Constipation, unspecified ec2 Followup: ec2 - With: Private Physician - When: - Reason: Re-evaluation by your physician Discharge Instructions: - Discharge Summary Sheet ec2 - Constipation, Adult, [id number] ec2 Forms: - Medication Reconciliation Form ec2 - Antibiotic Education ec2 - Prescription Opioid Use ec2 - Patient Portal Instructions ec2 - Leadership Thank You Letter ec2 Signatures: Dispatcher [employer] Nevin Murguia RN RN aa5 Jenn Delgadillo RN RN jw7 Hector Hardin, MD ec2
[2023-10-06 13:01] VITALS: BP 125/65; TEMP 97.8; O2SAT 98
== END 2023-10-06 10:20 | disposition home or self-care (01) ==
LOC: ER 06:53
DX: K59.00 Constipation, unspecified (principal)
CPT/HCPCS: 74018; 99284

== ENCOUNTER 2023-12-24 16:27 | Observation (INO) | payer MEDICAID ==
[2023-12-24 17:26] LABS: Absolute Eosinophils 0.2 K/uL (0-0.5); Absolute Lymphocytes (CBC) 1.7 K/uL (0.7-4.9); Absolute Monocytes 0.4 K/uL (0.1-1.3); Absolute Neutrophil 3.1 K/uL (1.8-8.0); Basophils % 0.3 % (0-1.3); Eosinophils % 3.4 % (0-4.4); Hematocrit 39.4 % (36.0-45.0); Hemoglobin 13.2 g/dL (12.0-15.0); Lymphocytes % 31.7 % (15.3-44.8); MCH 29.1 pg (27.0-35.0); MCHC 33.5 g/dL (32.0-36.0); Monocytes % 8.2 % (3.3-12.3); Neutrophils % 56.4 % (41.7-73.7); Platelets 209 thou/uL (152-406); RBC Red Blood Cell Count 4.52 M/uL (3.86-4.86); Red Cell Distribution Width 12.9 % (12.1-15.2)
[2023-12-24 17:42] LABS: Albumin 3.7 g/dL (3.4-5.0); Albumin/Globulin Ratio 1.2 (1.1-1.8); Anion Gap 8.7 mEq/L (5.0-15.0); Bilirubin Direct 0.2 mg/dL (0-0.2); Bilirubin Indirect, Calculated 0.7 mg/dL (0.2-0.8); Bilirubin Total 0.9 mg/dL (0.2-1.0); Globulin 3.1 g/dL (2.3-3.5); Magnesium 1.9 mg/dL (1.6-2.4); Potassium 3.7 mEq/L (3.5-5.1); Protein, Total 6.8 g/dL (6.4-8.2); Troponin High Sensitivity 3.6 pg/mL (<58.9)
--- NOTE | 2023-12-24 17:50 | RAD REPORT ---
Procedure: Chest Single View HISTORY: Chest pain COMPARISON: September 2023 FINDINGS: The lungs appear clear of acute infiltrate. No significant pleural effusion noted. The heart is normal size. IMPRESSION: No acute abnormality is displayed.
[2023-12-24] MEDS ORDERED: NITROGLYCERIN 0.4 MG/TAB SL PRN (20:20)
[2023-12-24] MEDS ORDERED: ONDANSETRON 4 MG/2 ML VIAL IV PRN (20:20)
--- NOTE | 2023-12-24 20:22 | ER ---
Nurse's Notes [facility] Name: Ade Nagel Age: 73 yrs Sex: Female : 1950 Arrival Date: 12/24/2023 Time: 16:27 Bed 17 Private MD: Diagnosis: Chest pain, unspecified Presentation: 12/23 16:40 Chief complaint: EMS states: DIZZINESS SINCE YESTERDAY. TODAY WITH CHEST PRESSURE AND db PALPITATIONS HEART FELT LIKE IT WAS GOING TO "JUMP OUT OF MY CHEST". GIVEN 243 ASA AND 0.4 MG NITRO SUBLINGUAL. TOOK 81 MG PRIOR TO EMS ARRIVAL. Coronavirus screen: Client denies travel out of the [place] in the last 14 days. At this time, the client does not indicate any symptoms associated with coronavirus-19. Ebola Screen: Patient negative for fever greater than or equal to 101.5 degrees Fahrenheit, and additional compatible Ebola Virus Disease symptoms Patient denies exposure to infectious person. Patient denies travel to an Ebola-affected area in the 21 days before illness onset. No symptoms or risks identified at this time. Initial Sepsis Screen: Does the patient meet any 2 criteria? No. Patient's initial sepsis screen is negative. Does the patient have a suspected source of infection? No. Patient's initial sepsis screen is negative. Risk Assessment: Do you want to hurt yourself or someone else? Patient reports no desire to harm self or others. Onset of symptoms was December 24, 2023. Care prior to arrival: Medication(s) given: ASA, 81 mg, x 3, Nitroglycerin, 0.4 mg SL x 1, IV initiated. 20 GA, in the left antecubital area, Glucose check: 117. 16:40 Method Of Arrival: EMS: [facility] db 16:40 Acuity: BECCA 2 db Triage Assessment: 16:40 General: Appears in no apparent distress. comfortable, Behavior is calm, cooperative. db Pain: Complains of pain in chest. Neuro: Level of Consciousness is awake, alert, obeys commands, Oriented to person, place, time, situation. Neuro: Reports dizziness. Cardiovascular: Reports palpitations. Respiratory: Airway is patent Respiratory effort is even, unlabored, Respiratory pattern is regular, symmetrical. Historical: - Allergies: 16:40 No Known Allergies; db - PMHx: 16:40 Congestive heart failure; diabetes mellitus; HEART FAILURE; HLD; Hypertensive disorder; db Sleep Apnea; - PSHx: 16:40 section; Tonsillectomy; db - Immunization history:: Adult Immunizations unknown. - Infectious Disease History:: Denies. - Social history:: Smoking status: Patient denies any tobacco usage or history of. Screenin:00 [facility] ED Fall Risk Assessment (Adult) History of falling in the last 3 months, db including since admission No falls in past 3 months (0 pts) Confusion or Disorientation No (0 pts) Intoxicated or Sedated No (0 pts) Impaired Gait No (0 pts) Mobility Assist Device Used No (0 pt) Altered Elimination No (0 pt) Score/Fall Risk Level 0 - 2 = Low Risk Oriented to surroundings, Maintained a safe environment. Abuse screen: Denies threats or abuse. Denies injuries from another. Nutritional screening: No deficits noted. Tuberculosis screening: No symptoms or risk factors identified. Assessment: 16:50 Reassessment: SEE TRIAGE FOR INITIAL ASSESSMENT. db 17:32 Reassessment: Patient appears in no apparent distress at this time. Patient and/or db family updated on plan of care and expected duration. Pain level reassessed. Patient is alert, oriented x 3, equal unlabored respirations, skin warm/dry/pink. 18:35 Reassessment: Patient appears in no apparent distress at this time. Patient and/or db family updated on plan of care and expected duration. Pain level reassessed. Patient is alert, oriented x 3, equal unlabored respirations, skin warm/dry/pink. AMBULATORY TO RESTROOM. General: Appears in no apparent distress. comfortable, Behavior is calm, cooperative. Pain: Denies pain. Neuro: Level of Consciousness is awake, alert, obeys commands, Oriented to person, place, time, situation. Respiratory: Airway is patent Respiratory effort is even, unlabored, Respiratory pattern is regular, symmetrical. 19:14 Reassessment: Patient appears in no apparent distress at this time. Patient and/or jb4 family updated on plan of care and expected duration. Pain level reassessed. Patient is alert, oriented x 3, equal unlabored respirations, skin warm/dry/pink. Vital Signs: 16:40 BP 131 / 60; Pulse 64; Resp 18; Temp 98.5(O); Pulse Ox 99% ; Weight 95.25 kg; Height 5 db ft. 7 in. ; 16:50 BP 117 / 69; Pulse 64; Resp 18; Pulse Ox 99% on R/A; db 17:30 BP 147 / 70; Pulse 64; Resp 18; Pulse Ox 99% on R/A; db 18:00 BP 121 / 60; Pulse 67; Resp 18; Pulse Ox 99% on R/A; db 19:14 BP 138 / 93; Pulse 60; Resp 16; Pulse Ox 98% on R/A; jb4 16:40 Body Mass Index 32.89 (95.25 kg, 170.18 cm) db ED Course: 16:29 Patient arrived in ED. bd 16:31 [facility]ini [facility]ires F[facility]-C [facility]. kb 16:31 Yvon Padilla MD is Attending Physician. kb 16:40 Arm band placed on Patient placed in an exam room. db 16:45 Brandi Vasquez, HOLLY is Primary Nurse. db 16:49 Triage completed. db 17:00 Maintain EMS IV. IV REMOVED FROM LEFT AC. IV INFILTRATED AND PAINFUL. db 17:14 Initial lab(s) drawn, by me, sent to lab. Inserted saline lock: 22 gauge in left db antecubital area, using aseptic technique. Blood collected. Flushed with 10 mL NS. 17:35 XRAY Chest (1 view) In Process Unspecified. EDMS 18:49 Patient has correct armband on for positive identification. Bed in low position. Call db light in reach. Side rails up X 1. Provided Education on: ADMISSION. Client placed on continuous cardiac and pulse oximetry monitoring. NIBP monitoring applied. court monitor on. Pulse ox on. NIBP on. Warm blanket given. Pillow given. 19:14 Jakob Osorio, RN is Primary Nurse. jb4 20:20 Prince Romero MD is Hospitalizing Provider. kb Administered Medications: 20:31 Drug: morphine IVP or IV 2 mg IVP once over 4 mins Route: IVP; Infused Over: 4 mins; jb4 Site: left forearm; 20:32 Drug: Ondansetron IVP 4 mg IVP once; over 2 minutes Route: IVP; Site: left antecubital; jb4 Medication: 18:49 VIS not applicable for this client. db Outcome: 20:21 Decision to Hospitalize by Provider. kb 22:33 Patient left the ED. jb4 Signatures: Dispatcher [employer] EDMS Ragini Pires, NELLY TALBERT-Natalia Richardson James, RN RN jb4 Brandi Vasquez RN RN db
--- NOTE | 2023-12-24 20:22 | EDPHYS ---
Physician Documentation [facility] Name: Ade Nagel Age: 73 yrs Sex: Female : 1950 Arrival Date: 12/24/2023 Time: 16:27 Bed 17 Private MD: ED Physician Yvon Padilla HPI: 12/23 20:19 This 73 yrs old Female presents to ER via EMS with complaints of Palpitations. kb 20:19 Pt is a 73 year old female who presents for chest pain and dizziness that started kb yesterday. States the symptoms have not improved so she came in for evaluation. Denies shortness of breath, nausea, vomiting. . Historical: - Allergies: 16:40 No Known Allergies; db - PMHx: 16:40 Congestive heart failure; diabetes mellitus; HEART FAILURE; HLD; Hypertensive disorder; db Sleep Apnea; - PSHx: 16:40 section; Tonsillectomy; db - Immunization history:: Adult Immunizations unknown. - Infectious Disease History:: Denies. - Social history:: Smoking status: Patient denies any tobacco usage or history of. ROS: 17:13 Constitutional: As per HPI kb Exam: 17:13 Constitutional: This is a well developed, well nourished patient who is awake, alert, kb and in no acute distress. Head/Face: Normocephalic, atraumatic. ENT: Moist Mucous membranes Cardiovascular: Regular rate Respiratory: Respirations even and unlabored. No increased work of breathing. Talking in full sentences Abdomen/GI: Soft, non-tender. No distention Skin: Warm, dry with normal turgor. Normal color. MS/ Extremity: Pulses equal, no cyanosis. Neurovascular intact. Full, normal range of motion. Neuro: Awake and alert, GCS 15, oriented to person, place, time, and situation. 17:13 ECG was reviewed by the Attending Physician. kb Vital Signs: 16:40 BP 131 / 60; Pulse 64; Resp 18; Temp 98.5(O); Pulse Ox 99% ; Weight 95.25 kg; Height 5 db ft. 7 in. ; 16:50 BP 117 / 69; Pulse 64; Resp 18; Pulse Ox 99% on R/A; db 17:30 BP 147 / 70; Pulse 64; Resp 18; Pulse Ox 99% on R/A; db 18:00 BP 121 / 60; Pulse 67; Resp 18; Pulse Ox 99% on R/A; db 19:14 BP 138 / 93; Pulse 60; Resp 16; Pulse Ox 98% on R/A; jb4 16:40 Body Mass Index 32.89 (95.25 kg, 170.18 cm) db MDM: 16:31 Medical Screening Exam initiated kb 20:17 Differential diagnosis: arrythmia, acute mi. Data reviewed: vital signs, nurses notes. kb Consideration of Admission/Observation Patient was admitted/placed on observation. Escalation of care including admission/observation considered. Management of patient was discussed with the following: Steak Sauce Maker: Dr Sheikh accepts pt for consult. Management of patient was discussed with the following: Hospitalist: Dr Romero accepts pt for admission. Historians other than the Patient: EMS: [facility]. Scoring Tools HEART Score: Total Score = 5. Counseling: I had a detailed discussion with the patient and/or guardian regarding the historical points, exam findings, and any diagnostic results supporting the discharge/admit diagnosis, lab results, radiology results, the need for further work-up and treatment in the hospital. 12/23 16:45 Order name: Basic Metabolic Panel; Complete Time: 17:45 kb 12/23 16:45 Order name: CBC with Diff; Complete Time: 17:27 kb 12/23 16:45 Order name: LFT's; Complete Time: 17:45 kb 12/23 16:45 Order name: Magnesium; Complete Time: 17:45 kb 12/23 16:45 Order name: NT PRO-BNP; Complete Time: 17:45 kb 12/23 16:45 Order name: Troponin HS; Complete Time: 17:45 kb 12/23 16:45 Order name: XRAY Chest (1 view); Complete Time: 18:18 kb 12/23 16:45 Order name: Cardiac monitoring; Complete Time: 17:04 kb 12/23 16:45 Order name: EKG - Nurse/Tech; Complete Time: 17:04 kb 12/23 16:45 Order name: IV Saline Lock; Complete Time: 17:18 kb 12/23 16:45 Order name: Labs collected and sent; Complete Time: 17:18 kb 12/23 16:45 Order name: O2 Per Protocol; Complete Time: 17:04 kb 12/23 16:45 Order name: O2 Sat Monitoring; Complete Time: 17:04 EC:13 Rate is 59 beats/min. Rhythm is regular. QRS [place] is Normal. MO interval is normal at kb 174 msec. QRS interval is normal at 140 msec. QT interval is normal at 461 msec. Administered Medications: 20:31 Drug: morphine IVP or IV 2 mg IVP once over 4 mins Route: IVP; Infused Over: 4 mins; jb4 Site: left forearm; 20:32 Drug: Ondansetron IVP 4 mg IVP once; over 2 minutes Route: IVP; Site: left antecubital; jb4 Disposition Summary: 12/24/23 20:21 Hospitalization Ordered Notes: Hospitalization Status: Observation kb Provider: Prince jewels Romero Location: Telemetry/MedSurg (observation) kb Condition: Stable kb Problem: new kb Symptoms: are unchanged kb Bed/Room Type: Standard Room Assignment: 219(12/24/23 20:29) ty Diagnosis - Chest pain, unspecified kb Forms: - Medication Reconciliation Form kb - SBAR form kb - Leadership Thank You Letter kb Signatures: Dispatcher [employer] EDMS Ragini Pires, RADIOLOGIC ELECTRONIC SPECIALIST-C RADIOLOGIC ELECTRONIC SPECIALIST-Ckb Jakob Osoiro RN RN jb4 Brandi Vasquez, RN RN db Santos Shaw ty Corrections: (The following items were deleted from the chart) 16:45 16:45 BASIC METABOLIC PANEL+C.LAB.BRZ ordered. EDMS EDMS 16:45 16:45 CBC+H.LAB.BRZ ordered. EDMS EDMS 16:45 16:45 HEPATIC FUNCTION+C.LAB.BRZ ordered. EDMS EDMS 16:45 16:45 MAGNESIUM+C.LAB.BRZ ordered. EDMS EDMS 16:45 16:45 PROBNP+C.LAB.BRZ ordered. EDMS EDMS 16:45 16:45 Troponin High Sensitivity+C.LAB.BRZ ordered. EDMS EDMS 16:45 16:45 Chest Single View+RAD.RAD.BRZ ordered. EDMS EDMS 20:29 20:21 kb ty
[2023-12-24] MEDS ORDERED: MORPHINE 2 MG/ML SYR ONE (20:27)
[2023-12-24] MEDS ORDERED: ONDANSETRON 4 MG/2 ML VIAL ONE (20:27)
--- NOTE | 2023-12-24 20:27 | P.HP ---
Certification for Inpatient Patient admitted to: Observation With expected LOS: <2 Midnights Practitioner: I am a practitioner with admitting privileges, knowledge of patient current condition, hospital course, and medical plan of care. Services: Services provided to patient in accordance with Admission requirements found in Title 42 Section 412.3 of the Code of Federal Regulations Patient History Date of Service: 12/24/23 Reason for admission: chest pain History of Present Illness: Patient is a 73-year-old female who is presenting to the hospital for evaluation of chest pain and dizziness her symptoms started yesterday. She is describing a left-sided chest pain associated with palpitations. Her symptoms progressed where she became dizzy. In the ER, workup was unremarkable including troponin was negative. EKG with evidence of right bundle branch block. Cardiology has been contacted, Dr. Sheikh. Agreed to keep the patient under observation. Allergies No Known Allergies Allergy (Unverified 07/07/23 02:47) Home Medications: Atorvastatin Calcium [Lipitor] 1 tab PO BEDTIME 07/07/23 Aspirin [Aspirin EC] 81 mg PO DAILY #90 tab 07/08/23 hydroCHLOROthiazide [Hydrochlorothiazide*] 12.5 mg PO DAILY #90 cap 07/08/23 - Past Medical/Surgical History Diabetic: No -: hyperlipidemia -: pre diabetic -: sleep apnea with CPAP dependancy -: 3 c sections -: Tonsillectomy -: R Breast biopsy - Family History Father -: Lung disease, Cancer Notes: Lung cancer Mother -: Cancer Notes: Breast cancer - Social History Alcohol use: Yes CD- Drugs: No Caffeine use: Yes Physical Examination - Physical Exam General: Acute distress HEENT: Atraumatic, Normocephalic Respiratory: Clear to auscultation bilaterally, Normal air movement Cardiovascular: No edema, Normal pulses, Regular rate/rhythm, Normal S1 S2 Neurological: Normal speech - Studies Laboratory Data (last 24 hrs) 12/24/23 12/24/23 17:14 17:14 WBC 5.50 Hgb 13.2 Hct 39.4 Plt Count 209 Sodium 140 Potassium 3.7 BUN 16 Creatinine 0.80 Glucose 115 H Magnesium 1.9 Total Bilirubin 0.9 AST 14 L ALT 23 Alkaline Phosphatase 59 Assessment and Plan - Problems (Diagnosis) (1) Chest pain Current Visit: No Status: Acute (2) HLD (hyperlipidemia) Current Visit: No Status: Acute - Plan Assessment Patient is 73-year-old female with a past medical history of hypertension and hyperlipidemia. She is being admitted for ACS rule out after she presented with chest pain and dizziness. She is hemodynamically stable. Her troponin is negative. Chest painACS rule out Hypertension Hyperlipidemia Plan: Will admit under observation with telemetry Orthostatic vitals Will also go ahead and obtain a D-dimer Trend troponin Check lipid panel Follow 2D echo As needed nitroglycerin on board Continue aspirin. Start atorvastatin Will hold off beta-mauro due to mild bradycardia DVT prophylaxis Cardiology has been consulted by ER - Advance Directives Does patient have a Living Will: No Does patient have a Durable POA for Healthcare: No
[2023-12-24 22:32] VITALS: BMI 33.3
[2023-12-24] MEDS: ATORVASTATIN 80 MG TAB PO SCH (22:56)
[2023-12-24 23:01] VITALS: O2SAT 98
[2023-12-24 23:46] LABS: PT Prothrombin Time 11.4 SECONDS (9.4-12.5); PTT, Activated Partial Thromb 31.5 SECONDS (24.3-36.9); Protime INR 1.02
[2023-12-24 23:47] LABS: D-Dimer < 0.215 FEUug/mL (0-0.500)
[2023-12-24 23:54] LABS: Magnesium 2.1 mg/dL (1.6-2.4); Phosphorus 3.9 mg/dL (2.5-4.9)
[2023-12-25 06:44] LABS: Anion Gap 8.7 mEq/L (5.0-15.0); Potassium 3.7 mEq/L (3.5-5.1)
[2023-12-25 06:58] LABS: Absolute Basophils 0.1 K/uL (0-0.5); Absolute Eosinophils 0.2 K/uL (0-0.5); Absolute Lymphocytes (CBC) 1.9 K/uL (0.7-4.9); Absolute Monocytes 0.5 K/uL (0.1-1.3); Absolute Neutrophil 2.6 K/uL (1.8-8.0); Basophils % 1.2 % (0-1.3); Eosinophils % 4.1 % (0-4.4); Hematocrit 39.7 % (36.0-45.0); Hemoglobin 13.4 g/dL (12.0-15.0); MCH 29.4 pg (27.0-35.0); MCHC 33.8 g/dL (32.0-36.0); MCV 87.2 fL (80-100); MPV 9.6 fL (7.6-11.3); Monocytes % 10.1 % (3.3-12.3); Neutrophils % 49.6 % (41.7-73.7); Platelets 191 thou/uL (152-406); RBC Red Blood Cell Count 4.55 M/uL (3.86-4.86); Red Cell Distribution Width 12.9 % (12.1-15.2)
[2023-12-25] MEDS ORDERED: FLU (Fluarix Triv) TS24-25(6MOS UP)/PF 45 MCG/0.5 ML Syringe IM ONE (08:15)
[2023-12-25] MEDS: ASPIRIN EC 81 MG TAB PO SCH (10:07)
[2023-12-25] MEDS: ENOXAPARIN 40 MG/0.4 ML SQ SCH (10:07)
--- NOTE | 2023-12-25 10:14 | P.PN ---
Subjective Date of Service: 12/25/23 Chief Complaint: chest pain Subjective: Improving (Pt states she was sitting down and suddenly had palpitations and felt her heart racing, + nausea, +dizziness, mild chest pain) <Susan Mauricio - Last Filed: 12/25/23 10:04> Date of Service: 12/25/23 <Travis Smallsebastián Stewart - Last Filed: 12/25/23 12:44> Review of Systems 10-point ROS is otherwise unremarkable General: Unremarkable Eyes: Unremarkable ENT: Unremarkable Respiratory: Unremarkable Cardiovascular: Chest Pain, Palpitations, Light Headedness Gastrointestinal: Nausea Genitourinary: Unremarkable Musculoskeletal: Unremarkable Integumentary: Unremarkable Neurological: Unremarkable Lymphatics: Unremarkable <Susan Mauricio - Last Filed: 12/25/23 10:04> Physical Examination - Vital Signs Temperature: 98.1 F Blood Pressure: 117/59 Pulse: 66 Respirations: 16 Pulse Ox (%): 95 - Physical Exam General: Alert, In no apparent distress, Oriented x3 HEENT: Atraumatic, Normocephalic Neck: Supple Respiratory: Normal air movement Cardiovascular: Regular rate/rhythm, Normal S1 S2, Other (tele overnight with NSR with occ PVC) Capillary refill: <2 Seconds Gastrointestinal: Soft and benign Musculoskeletal: No clubbing, No swelling Integumentary: No rashes Neurological: Normal speech, Normal tone, Normal affect Lymphatics: No axilla or inguinal lymphadenopathy External genitalia: Deferred Rectal: Deferred - Studies Laboratory Data (last 24 hrs) 12/24/23 12/24/23 17:14 17:14 WBC 5.50 Hgb 13.2 Hct 39.4 Plt Count 209 Sodium 140 Potassium 3.7 BUN 16 Creatinine 0.80 Glucose 115 H Magnesium 1.9 Total Bilirubin 0.9 AST 14 L ALT 23 Alkaline Phosphatase 59 <Susan Mauricio - Last Filed: 12/25/23 10:04> - Studies Laboratory Data (last 24 hrs) 12/24/23 12/24/23 17:14 17:14 WBC 5.50 Hgb 13.2 Hct 39.4 Plt Count 209 Sodium 140 Potassium 3.7 BUN 16 Creatinine 0.80 Glucose 115 H Magnesium 1.9 Total Bilirubin 0.9 AST 14 L ALT 23 Alkaline Phosphatase 59 <Dior Small - Last Filed: 12/25/23 12:44> Assessment And Plan - Plan Plan: 1. Serial troponins and EKG 2. Appreciate consultation from cardiology, notified from ED 3. Echocardiogram (done 12/25/23) and stress test (pt declined) with cardiology is agreeable 4. Antiplatelet therapy, anticoagulation, beta-mauro, statin, and O2 as needed 5. IV morphine for pain control 6. AHA diet as pt refused NM stress VTE/GI prophylaxis <Susan Mauricio - Last Filed: 12/25/23 10:04> - Plan Pt seen and examined. I agree with the note by the FIELD ARTILLERY OFFICER. Pt refused NM stress test. She had a normal cardiac cath recently. Cardiology evaluated pt and attributed the chest pain to non-cardiac in origin. Pt reported history of acid reflux but she stopped taking protonix at home. Will resume protonix. Will f/u Echo and dc pt. <Dior Small C - Last Filed: 12/25/23 12:44>
[2023-12-25 11:33] LABS: Specific Gravity 1.013 (1.005-1.030); Urine Bilirubin NEGATIVE (Negative); Urine Blood Negative (Negative); Urine Clarity Clear (Clear); Urine Color Light-Yellow (Yellow); Urine Glucose NEGATIVE (Negative); Urine Ketones NEGATIVE (Negative); Urine Microscopic Reflex YN NO UMIC; Urine Nitrite NEGATIVE (Negative); Urine Protein NEGATIVE (Negative); Urine Urobilinogen Normal (Normal); Urine pH 6.5 (5.0-7.0)
--- NOTE | 2023-12-25 11:45 | P.CNS ---
Date of Consult: 12/25/23 Chief Complaint: chest pain History of Present Illness: Patient with PMH of HTN, Diastolic heart failure, presented with feeling weak, palpitations and chest pain, denies SOB, no THURSTON, no syncope. Allergies No Known Allergies Allergy (Unverified 07/07/23 02:47) Home medications list reviewed: Yes Home Medications: Atorvastatin Calcium [Lipitor] 1 tab PO BEDTIME 07/07/23 Aspirin [Aspirin EC] 81 mg PO DAILY #90 tab 07/08/23 hydroCHLOROthiazide [Hydrochlorothiazide*] 12.5 mg PO DAILY #90 cap 07/08/23 - Past Medical/Surgical History Diabetic: No -: hyperlipidemia -: pre diabetic -: sleep apnea with CPAP dependancy -: 3 c sections -: Tonsillectomy -: R Breast biopsy - Family History Father Medical History: Lung disease, Cancer Notes: Lung cancer Mother Medical History: Cancer Notes: Breast cancer. Dad Lung Cancer - Social History Alcohol use: No CD- Drugs: No Caffeine use: Yes Place of Residence: Home Review of Systems 10-point ROS is otherwise unremarkable Physical Examination Temp Pulse Resp BP Pulse Ox 98.1 F 66 16 117/59 L 95 12/25/23 10:23 12/25/23 10:23 12/25/23 10:23 12/25/23 10:23 12/25/23 10:23 General: Alert, In no apparent distress HEENT: Atraumatic, PERRLA, Mucous membr. moist/pink, EOMI, Sclerae nonicteric Neck: Supple, 2+ carotid pulse no bruit, No LAD, Without JVD or thyroid abnormality Respiratory: Clear to auscultation bilaterally, Normal air movement Cardiovascular: Regular rate/rhythm, Normal S1 S2 Gastrointestinal: Normal bowel sounds, No tenderness Musculoskeletal: No tenderness Integumentary: No rashes Neurological: Normal gait, Normal speech, Normal tone, Normal affect Lymphatics: No axilla or inguinal lymphadenopathy Laboratory Data (last 24 hrs) 12/24/23 12/24/23 17:14 17:14 WBC 5.50 Hgb 13.2 Hct 39.4 Plt Count 209 Sodium 140 Potassium 3.7 BUN 16 Creatinine 0.80 Glucose 115 H Magnesium 1.9 Total Bilirubin 0.9 AST 14 L ALT 23 Alkaline Phosphatase 59 - Problems (1) Chronic diastolic heart failure Current Visit: Yes Status: Acute Plan: Patient looks euvolemic on exam, no need for diuresis. continue home dose HCTZ (2) Chest pain Current Visit: No Status: Acute Plan: non cardiac, patient had a recent coronary angiogram that shown normal coronaries No further cardiac work up needed. outpatient follow up for event monitor (3) HLD (hyperlipidemia) Current Visit: No Status: Acute Plan: continue Lipitor
--- NOTE | 2023-12-25 12:15 | EKG ---
Test Date: 2023-12-24 Test Time: 16:55:33 Metal Miner Blasting: GABRIELA MEASUREMENT RESULTS: Intervals: Rate: 59 GA: 174 QRSD: 140 QT: 466 QTc: 461 [place]: P: 30 GA: 174 QRS: 26 T: 26 INTERPRETIVE STATEMENTS: Sinus bradycardia Right bundle branch block Abnormal ECG Compared to ECG 09/27/2023 16:32:15 Sinus rhythm no longer present Electronically Signed On 12-25-23 12:12:47 CDT by Demario Sheikh
--- NOTE | 2023-12-25 12:45 | P.DS ---
Admission Date: 12/24/23 Discharge Date: 12/25/23 Disposition: ROUTINE DISCHARGE Discharge Condition: GOOD Reason for Admission: chest pain Brief History of Present Illness: Patient is a 73-year-old female who is presenting to the hospital for evaluation of chest pain and dizziness her symptoms started yesterday. She is describing a left-sided chest pain associated with palpitations. Her symptoms progressed where she became dizzy. In the ER, workup was unremarkable including troponin was negative. EKG with evidence of right bundle branch block. Cardiology has been contacted, Dr. Sheikh. Agreed to keep the patient under observation. Hospital Course: Patient is a 73yo female with past medical history GERD who presented with chest pain and dizziness. The chest pain was associated with palpitation. She is describing a left-sided chest pain associated with palpitations. On admission, lab studies were unremarkable. we admitted pt to r/o ACS. Troponin was negative. Pt refused NM stress test because she had nausea the last time she did stress test. Cardiology evaluated her and attributed the chest pain to non-cardiac etiology. She recently had a normal cardiac cath. Pt reported history of GERD but she stopped talking protonix. We prescribed protonix and advised her to follow up with cardiology for event monitor. Pt was in NAD prior to discharge. Vital Signs/Physical Exam: Temp Pulse Resp BP Pulse Ox 98.1 F 66 16 117/59 L 95 12/25/23 10:23 12/25/23 10:23 12/25/23 10:23 12/25/23 10:23 12/25/23 10:23 Laboratory Data at Discharge: WBC 5.30 thou/uL (4.3-10.9) 12/25/23 06:08 Hgb 13.4 g/dL (12.0-15.0) 12/25/23 06:08 Hct 39.7 % (36.0-45.0) 12/25/23 06:08 Plt Count 191 thou/uL (152-406) 12/25/23 06:08 PT 11.4 SECONDS (9.4-12.5) 12/24/23 23:15 INR 1.02 12/24/23 23:15 APTT 31.5 SECONDS (24.3-36.9) 12/24/23 23:15 Sodium 141 mEq/L (136-145) 12/25/23 06:08 Potassium 3.7 mEq/L (3.5-5.1) 12/25/23 06:08 BUN 15 mg/dL (7-18) 12/25/23 06:08 Creatinine 0.78 mg/dL (0.55-1.02) 12/25/23 06:08 Glucose 95 mg/dL (74-106) 12/25/23 06:08 Phosphorus 3.9 mg/dL (2.5-4.9) 12/24/23 23:15 Magnesium 2.1 mg/dL (1.6-2.4) 12/24/23 23:15 Total Bilirubin 0.9 mg/dL (0.2-1.0) 12/24/23 17:14 AST 14 U/L (15-37) L 12/24/23 17:14 ALT 23 U/L (13-56) 12/24/23 17:14 Alkaline Phosphatase 59 U/L (45-117) 12/24/23 17:14 Triglycerides 80 mg/dL (<150) 12/25/23 06:08 Cholesterol 135 mg/dL (<200) 12/25/23 06:08 HDL Cholesterol 78 mg/dL (40-60) H 12/25/23 06:08 Cholesterol/HDL Ratio 1.73 12/25/23 06:08 Home Medications: Atorvastatin Calcium [Lipitor] 1 tab PO BEDTIME 07/07/23 Aspirin [Aspirin EC] 81 mg PO DAILY #90 tab 07/08/23 hydroCHLOROthiazide [Hydrochlorothiazide*] 12.5 mg PO DAILY #90 cap 07/08/23 Pantoprazole [Protonix Tab*] 40 mg PO DAILYAC 30 Days #30 tab 12/25/23 New Medications: Pantoprazole [Protonix Tab*] 40 mg PO DAILYAC 30 Days #30 tab Physician Discharge Instructions: Continue ad kalpesh activity as tolerated. Take protonix 40mg po daily. Follow up with Cardiology for event monitor. Follow up with PCP within 1 - 2 weeks. Diet: AHA Activity: Ad kalpesh Followup: Shanon Gonzalez FNP [Primary Care Provider] -
[2023-12-25 12:52] VITALS: BP 148/82; TEMP 97.1
--- NOTE | 2023-12-25 13:20 | ECHO ---
HEIGHT: 5 ft 7 in WEIGHT: 213 lb 0 oz DATE OF STUDY: 12/25/[address]: Prince Yonas Romero MD 2-DIMENSIONAL: YES M.MODE: YES DOPPLER: YES COLOR FLOW: YES TDS: PORTABLE: YES DEFINITY: BUBBLE STUDY: DIAGNOSIS: CHEST PAIN CARDIAC HISTORY: CATHERIZATION: SURGERY: PROSTHETIC VALVE: PACEMAKER: MEASUREMENTS (cm) DIASTOLIC (NORMALS) SYSTOLIC (NORMALS) IVSd 0.9 (0.6-1.2) LA Diam 3.8 (1.9-4.0) LVEF 60-65% LVIDd 3.7 (3.5-5.7) LVIDs 2.7 (2.0-3.5) %FS LVPWd 0.9 (0.6-1.2) Ao Diam 2.4 (2.0-3.7) 2 DIMENSIONAL ASSESSMENT: RIGHT ATRIUM: NORMAL LEFT ATRIUM: NORMAL RIGHT VENTRICLE: NORMAL LEFT VENTRICLE: NORMAL TRICUSPID VALVE: TRACE TRICUSPID REGURGITATION MITRAL VALVE: TRACE MITRAL REGURGITATION PULMONIC VALVE: NORMAL AORTIC VALVE: NORMAL PERICARDIAL EFFUSION: NONE AORTIC ROOT: NORMAL LEFT VENTRICULAR WALL MOTION: NORMAL DOPPLER/COLOR FLOW: NORMAL COMMENTS: 1. NORMAL LEFT VENTRICULAR SYSTOLIC FUNCTION, EJECTION FRACTION 60-65%, NORMAL WALL MOTION 2. NORMAL DIASTOLIC FUNCTION 3. NORMAL FILLING PRESSURE TECHNOLOGIST: NELA GOINS
[2023-12-25] MEDS: POTASSIUM 25 MEQ EFFERV TAB PO ONE (14:09)
[2023-12-26] MEDS ORDERED: PANTOPRAZOLE 40MG TABLET PO SCH (06:30)
== END 2023-12-25 18:07 | disposition home or self-care (01) ==
LOC: ER 16:27 → 2ND 20:20
PROVIDERS: ADMIT Internal Medicine; ATTEND Hospitalist
DX: R07.9 Chest pain, unspecified (principal); I50.32 Chronic diastolic (congestive) heart failure; I45.10 Unspecified right bundle-branch block; R42 Dizziness and giddiness; E78.5 Hyperlipidemia, unspecified; I10 Essential (primary) hypertension; K21.9 Gastro-esophageal reflux disease without esophagitis
CPT/HCPCS: 36415; 71045; 80048; 80061; 80076; 81003; 82550; 82947; 83735; 83880; 84100; 84484; 85025; 85379; 85610; 85730; 93005; 93306; 94760; 99285; G0378; J1650; J2270; J2405